=== PATIENT | female | born 1990 | race Caucasian/White ===

== ENCOUNTER 2018-11-19 21:45 | Inpatient (IN) | payer MEDICAID ==
[~2018-11-19] VITALS: Ht 170.2 cm; Wt 112.3 kg
--- NOTE | 2018-11-19 22:00 | NUR ---
Pt arrived on unit escorted by and with complaints of contractions. Pt denies any leaking of fluid and/or bleeding and reports normal movement. EFM and toco monitors placed. Vitals signs WNL. SVE by this RN 3-/-2. Information reviewed with Dr. Curran. ORders for labor admission received.
[2018-11-19 22:30] VITALS: BP 133/82; PULSE 115; TEMP 97.6
[2018-11-19 23:00] VITALS: BP 121/88; PULSE 118
[2018-11-19 23:00] LABS: BASO % 0.2 % (0.0-2.0); EOS % 0.5 % (0-4.0); GRAN # 6.3 (1.4-6.5); GRAN % 74.5 % (42.2-75.2); LYMPH # 1.4 (1.2-3.4); LYMPH % 16.7 % (20.0-51.0); MEAN CELL VOLUME 84 fl (80.0-100.0); MEAN CORPUSCULAR HGB CONC 33 g/dl (33.0-37.0); MEAN PLATELET VOLUME 11.4 fl (7.4-10.4); MONO # 0.6 (0.1-0.6); MONO % 6.7 % (1.7-9.3); PLATELET COUNT 144 K/mm3 (130-400); RED BLOOD COUNT 3.03 M/mm3 (4.10-5.30); REDCELL DISTRIBUTION WIDTH-CV 15.4 % (11.5-14.5)
--- NOTE | 2018-11-19 23:00 | NUR ---
2300- Difficult tracing ctx. [place] readjusted. 0100- Difficult tracing ctx. [place] readjusted. 0130- Difficult tracing ctx. [place] readjusted. 0145- Difficult tracing ctx. [place] readjusted.
[2018-11-19 23:02] LABS: HEMATOCRIT 25.4 % (37.0-47.0); HEMOGLOBIN 8.3 g/dl (12.5-16.0); MEAN CORPUSCULAR HEMOGLOBIN 27 pg (27.0-31.0)
[2018-11-19 23:15] VITALS: BP 105/69; PULSE 139
[2018-11-19 23:30] VITALS: BP 105/61; PULSE 114
[2018-11-19 23:45] VITALS: BP 113/71; PULSE 116
[2018-11-20] VITALS (49 sets, daily range): BP systolic 91–137; BP diastolic 45–88; PULSE 86–142; TEMP 97.6–98.1
[2018-11-20] MEDS ORDERED: ZOLOFT 50MG50 MG PO (07:45)
[2018-11-20] MEDS ORDERED: MOTRIN 800800 MG/TAB PO (08:53)
--- NOTE | 2018-11-20 10:20 | NUR ---
1020- This RN at bedside, discusses starting Pitocin per MD request. Pt does not want to start this medication. She feels like she has done it without 2 other times and has gotten to 8cm on her own. She states that her friends that have had that medication have ended up in c/s and she doesnt want it. This RN will discuss with Dr Romero.
--- NOTE | 2018-11-20 10:30 | NUR ---
1025- Dr Romero updated on Pt request to not start Pitocin. MD wants this RN to perform SVE and let her know. 1027- SVE . Pt wants time to make dicision. RN leaves bedside to update MD.
--- NOTE | 2018-11-20 10:50 | NUR ---
1050- Dr Romero at bedside to discuss POC. SVE . Answers questions and gives reccomendations. Pt complains of more pressure and cramping pain. 1058- SVE by , , Pt wishes to wait on Pitocin at this time. agrees this is okay.
--- NOTE | 2018-11-20 11:38 | NUR ---
1128- MD at bedside. SVE complete. Pt starts pushing with Paulo. and this RN remain at bedside. 1132- Alexander out without difficulty. Pt continues pushing. 1135- Ilya, Nursery RN at bedside. 1138- of viable female . Cord clamped and cut. Infant taken to warmer for cares, tended to by Nursery RN. Cord gases and cord blood obtained. 1142- Spontaneous delivery of placenta, Pitocin started at 333ml/hr. Pericare completed after perineal repair. Ice pack to perineum, clean chux placed.
--- NOTE | 2018-11-20 15:20 | NUR ---
1520- Pt unable to lift leg off of bed, still feels numb to her. Straight cath by this RN, 700mls noted. Pericare completed. Ice pack and underwear on. Pt assisted into wheelchair with assist x1. Transfered to room. Pt transfers to bed without complications, assist x1. Pt tolerated well. Pt and oriented to room. Call light within reach.
--- NOTE | 2018-11-20 17:30 | NUR ---
1730- Pt sleeping in room alone, baby in bed. Pt educated that if she is sleeping, baby must be in the crib according to our hospital policy. Pt verbalized understanding and states she wont sleep anymore.
[2018-11-21 07:55] VITALS: BP 112/64; PULSE 89; TEMP 97.3
--- NOTE | 2018-11-21 09:49 | NUR ---
Initial visit; Mom thanked Hat Presser for offering congratulations and God's blessings for the of her daughter. Hat Presser thanked her for choosing [facility].
[2018-11-21 15:49] VITALS: BP 102/57; PULSE 98; TEMP 98.2
[2018-11-21 20:30] VITALS: BP 101/61; PULSE 98; TEMP 98.3
[2018-11-22 09:00] VITALS: BP 113/72; PULSE 95; TEMP 97.8
--- NOTE | 2018-11-22 12:50 | NUR ---
Patients discharge instructions reviewed with her. Patient verbalizes understanding. Script for only Motrin given and explained.
== END 2018-11-22 13:15 | disposition home or self-care (01) | DRG 807 ==
LOC: LDRO 21:45 → LDR 22:11 → OB 11-20 15:30
PROVIDERS: ADMIT Obstetrics & Gynecology
PROC: 10E0XZZ Delivery of Products of Conception, External Approach (ICD-10-PCS; principal; 2018-11-20)
PROC: 0HQ9XZZ Repair Perineum Skin, External Approach (ICD-10-PCS; 2018-11-20)
DX: O77.0 Labor and delivery complicated by meconium in amniotic fluid (principal); Z37.0 Single live birth; O99.344 Other mental disorders complicating childbirth; O70.0 First degree perineal laceration during delivery; F41.9 Anxiety disorder, unspecified; Z3A.40 40 weeks gestation of pregnancy; O99.02 Anemia complicating childbirth
CPT/HCPCS: J2590; J2795; J7120

== ENCOUNTER → 2018-11-28 | Outpatient (CLI) | payer MEDICAID ==
[~2018-11-28] MED LIST: MOTRIN 800800 MG/TAB PO; ZOLOFT 50MG50 MG PO
--- NOTE | 2018-11-28 11:17 | NUR ---
Pt, Papito Romero, presents to walk-in clinic with 8 day old baby girl, Monica Romero with concerns of milk supply and decreased stools. Pt states Monica continues to act hungry even after on each side for 20 minutes. Monica is being supplemented with 2-3oz formula after each feeding. This was initiated in the hospital because of low blood glucose levels and pt has not felt she can discontinue because of the baby's hunger, and she does not feel her milk supply has really established yet. Pt reports Monica had a bowel movement yesterday after rectal stimulation and bicycling of the legs; it's appearance was brown/yellow and still thick and sticky. She has had only one other bowel movement since discharge. Voids are present at each , 8 or more times daily. Monica was born by on [birth year] and weighed 10# 1oz. She was seen at 3 days of age by her clerk carrier and weighed 9# 5oz, just one ounce below discharge weight. Today Monica weighs 9#10oz (4366 gms). She breastfeeds bilaterally for 20 min/per side with a nipple shield and has a weight gain of 20gms from the left side and 40gms from the right. She is still actively rooting, she is placed back to the breast without the nipple shield (good latch with LC assist), provided 12ml via SNS. Monica's effort was much stronger with the SNS. Pt states she does not feel she can coordinate latch and SNS at home, so Monica drank and additional 30ml from a bottle. She is content after burping and has a total weight gain of 3.6oz (102 gms). Discussion included feeding options, as pt discouraged to breastfeed for so long and not have baby satisfied. 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 She does have assistance of her spouse, but the idea of pumping after overwhelms her. also suggests a short trial period of just pumping and bottle feeding to work on milk supply by more through emptying of the breast with the pump. Pt will consider this, but may continue with what she is currently doing, which is to breastfeed and bottle feed after. Monica has an appointment at [facility] to follow up on decreased bowel movements. Pt encouraged to follow up with LC as desired with questions or clarification of feeding options as desired. Pt verbalizes understanding.
== END ==
LOC: OLC 10:33
DX: Z39.1 Encounter for care and examination of lactating mother (principal); Z71.89 Other specified counseling

== ENCOUNTER → 2019-01-05 | Outpatient (CLI) | payer MEDICAID ==
--- NOTE | 2019-01-05 12:21 | NUR ---
Pt, Papito Romero, presents for outpatient consult with 6 week old baby girl, Monica Romero, because of concerns of frequent feedings, stomach ache behavior, and not napping because of frequent feeds. Pt is also concerned about low milk supply b/c of frequent feeds and not feeling "full". Monica was born on [birth year] and weighed 10#1oz. She was seen at 8 days of age for clinic and weighed 9#10oz. Pt's milk was slow to increase so Monica was supplemented for a few weeks. Milk was reported by pt to be full by 12/21/18 per phone records with this LC. Today Monica weighs 12#6.4oz for a gain of 2#12oz in the last 5 weeks. She nurses with a nipple shield and has a weight gain of 2.8oz in about 12 min from the left side. Infant is offered the second breast but she does not latch. After about 15 min she is offered the left breast again and she nurses for <10 min and has additional gain of 1.1oz. Pt reports pumping quanities that indicate milk supply is more than adequate, 5+oz collected when at school. Monica drinks 2-3oz from bottles when pt is at school. Otherwise pt reports baby is on her breast every 30-60 minutes, not going to sleep until midnight. Pt advised to practice block feeding, offering the same breast 2-3 feedings consecutively, then switching to opposite breast for 2-3 consecutive feedings. 's behavior and weight gain may be related to lactose intolerance r/t pt's oversupply of milk. Pt may also consider drops for infant gas discomfort as well. Pt verbalizes understanding, reassured infant is getting qs and her supply is sufficiant. Follow up as desired. Questions invited and answered.
== END ==
LOC: LAC 11:06
DX: Z39.1 Encounter for care and examination of lactating mother (principal); Z71.89 Other specified counseling